=== PATIENT | male | born 1990 | race African-American/Black ===

== ENCOUNTER 2022-08-11 03:56 | Emergency (ER) | payer BC ==
[~2022-08-11] VITALS: Ht 180.3 cm; Wt 94.0 kg
--- NOTE | 2022-08-11 04:20 | NUR ---
BIBGF FROM HOME WITH CC OF CHEST PAIN (LOWER RIB AREA) STARTED AT 0230H. TOOK ADVIL 400MG;WITH RELIEF PAIN SCALE OF 3/10. PER PATIENT, HE WENT TO [facility] LAST TUESDAY AND HAD MUSHROOM CHOCOLATE. TUESDAY, HE STARTED TO HAVE ABDOMINAL PAIN (GASSY). DISCOMFORT FELT WHENEVER HE BREATH. PATIENT IS AAOX4. ABLE TO MAKE NEEDS KNOWN. PLACED COMFORTABLY IN BED. ATTACHED TO MONITOR. VITALS CHECKED.
--- NOTE | 2022-08-11 04:41 | NUR ---
URINE SPECIMEN SENT TO LAB
--- NOTE | 2022-08-11 04:41 | NUR ---
EKG DONE AT BEDSIDE
[2022-08-11 05:18] LABS: BASOPHILS % (AUTO) 0.9 % (0.0-2.0); EOSINOPHILS % (AUTO) 13.3 % (0.0-6.0); HEMATOCRIT 43 % (39-51); HEMOGLOBIN 14.4 g/dL (13.5-17.5); MEAN CORPUSCULAR HGB CONC 33 g/dl (31.0-36.0); MEAN CORPUSCULAR VOLUME 93 fL (80-96); MONOCYTES # (AUTO) 0.5 K/uL (0.1-1.30); MONOCYTES % (AUTO) 9.2 % (2.0-12.0); NEUTROPHILS % (AUTO) 38.6 % (43.0-81.0); PLATELET COUNT (AUTO) 244 K/uL (150-450); RED BLOOD CELL COUNT(AUTO) 4.68 MIL/uL (4.5-6.0); WHITE BLOOD COUNT (AUTO) 5.2 K/uL (4.3-11.0)
[2022-08-11 05:29] LABS: CALCIUM, SERUM 8.9 mg/dL (8.5-10.1); CARBON DIOXIDE 30 mmol/L (21-32); CHLORIDE 106 mmol/L (98-107); CREATININE 1.1 mg/dL (0.6-1.3); GLUCOSE 103 mg/dL (74-106); POTASSIUM 4.1 mmol/L (3.5-5.1); SODIUM SERUM 140 mmol/L (136-145); UREA NITROGEN, BLOOD 16 mg/dL (7-18)
--- NOTE | 2022-08-11 05:58 | NUR ---
Patient discharged to home in stable condition. Written and verbal after care instructions given. Patient verbalizes understanding of instruction. IV removed. Catheter intact and site benign. Pressure and 4x4 applied to site. No bleeding noted.
[2022-08-11 06:00] VITALS: BP 121/71
== END 2022-08-11 06:00 | disposition home or self-care (01) ==
LOC: ER 04:02
DX: R07.89 Other chest pain (principal); Z60.2 Problems related to living alone; Z91.011 Allergy to milk products
CPT/HCPCS: 36415; 71046; 80048-TC; 84484-TC; 85025-TC